=== PATIENT | male | born 1955 | race Caucasian/White ===

== ENCOUNTER 2023-09-26 10:50 | Emergency (ER) | payer OTHER ==
[2023-09-26 11:22] VITALS: BP 133/83; PULSE 57; RESP 16; TEMP 98; BMI 24.0
== END 2023-09-26 12:10 | disposition home or self-care (01) ==
LOC: FER 10:50
DX: S76.312A Strain of muscle, fascia and tendon of the posterior muscle group at thigh level, left thigh, initial encounter (principal); X50.1XXA Overexertion from prolonged static or awkward postures, initial encounter; Y93.66 Activity, soccer
CPT/HCPCS: 93971-TC; 99284-25

== ENCOUNTER → 2024-09-28 | Day surgery (SDC) | payer BC, OTHER | END | disposition home or self-care (01) | LOC: JRADIR 10:51 | PROVIDERS: ATTEND Internal Medicine Endocrinology, Diabetes & Metabolism | PROC: 0G9K3ZX Drainage of Thyroid Gland, Percutaneous Approach, Diagnostic (ICD-10-PCS; principal; 2024-09-28) | DX: E04.1 Nontoxic single thyroid nodule (principal) | CPT/HCPCS: 10005; 76942; 88173; 88305-TC ==